=== PATIENT | male | born 1975 | race Caucasian/White ===

== ENCOUNTER 2021-10-01 18:06 | Emergency (ER) | payer MEDICAID ==
[~2021-10-01] VITALS: Ht 170.2 cm; Wt 64.0 kg
[2021-10-01] MEDS ORDERED: KETOROLAC 60MG/2ML VIAL IM ONE (19:30)
[2021-10-01 21:30] VITALS: BP 136/86
[2021-10-01] MEDS ORDERED: METH-653 MT (22:07)
[2021-10-01] MEDS ORDERED: IBUP-2029 MT (22:07)
== END 2021-10-01 22:39 | disposition home or self-care (01) ==
LOC: ER 18:06
DX: R07.89 Other chest pain (principal); M25.511 Pain in right shoulder; M54.2 Cervicalgia; G89.11 Acute pain due to trauma; V49.49XA Driver injured in collision with other motor vehicles in traffic accident, initial encounter; Y93.89 Activity, other specified; Y92.488 Other paved roadways as the place of occurrence of the external cause
CPT/HCPCS: 72125; 73030; 93005; 96372; 99285; J1885